=== PATIENT | male | born 1965 | race Caucasian/White ===

== ENCOUNTER → 2017-12-06 | Outpatient (REF) ==
[~2017-12-06] MED LIST: DIPH-466 PO; HYDR-3074 PO; KET10 PO; MULT-1335 PO; PER PO; PRE20 PO
== END ==
LOC: AUD 11:00
PROVIDERS: ATTEND Internal Medicine
DX: Z01.10 Encounter for examination of ears and hearing without abnormal findings (principal)
CPT/HCPCS: 92552